=== PATIENT | female | born 1975 | race Caucasian/White ===

== ENCOUNTER 2019-03-07 00:21 | Emergency (ER) | payer OTHER ==
[~2019-03-07] VITALS: Ht 167.6 cm; Wt 70.3 kg
[2019-03-07 00:57] LABS: ABSOLUTE NEUTROPHILS 5.5 thou/uL (1.4-8.2); BASOPHILS 1.2 % (0.0-2.0); EOSINOPHILS 2.5 % (0.0-3.0); HEMATOCRIT 43.2 % (37.0-47.0); HEMOGLOBIN 14.7 gm/dL (12.0-15.0); LYMPHOCYTES 34.9 % (24.0-44.0); MCH 31.2 pg (26.0-34.0); MCHC 33.9 g/dL (28.0-37.0); MCV 92.2 fL (80.0-100.0); MONOCYTES 8.2 % (1.0-8.0); PLATELET COUNT 278 thou/uL (150-400); POLYS 53.2 % (36.0-66.0); RBC 4.69 mil/uL (4.20-5.00); WBC 10.4 thou/uL (4.0-11.0)
[2019-03-07 01:03] LABS: ANION GAP 10 mmol/L (7-16); BUN 15 mg/dL (7-18); CHLORIDE 102 mmol/L (98-107); CO2 28 mmol/L (21-32); CREATININE 0.8 mg/dL (0.6-1.0); GLUCOSE 110 mg/dL (74-106); POTASSIUM 3.8 mmol/L (3.5-5.1); SODIUM 140 mmol/L (136-145)
[2019-03-07 01:12] LABS: TROPONIN-I <0.06 ng/mL (<0.06)
[2019-03-07 02:20] VITALS: BP 125/71
--- NOTE | 2019-03-07 08:05 | EKG ---
[place] [address] [facility] [place] [address] ELECTROCARDIOGRAM REPORT Name: TONI LNENON Room #: [facility] Panfilo#: [id number] ������������������ Admission: 03/07/19 ������������������ Attend Phys: Discharge: 03/07/19 ������������������ Date of : 71 Report #: [id number] ����������������������������������������������������������������� [id number] THIS REPORT FOR: //name// [facility] ED Test Date: 2019-03-07 Test Time: 00:35:57 Pat Name: TONI LENNON Department: Room: Gender: F Plumber Assistant: TRACI : 1975 Requested By: Ravin Patterson Order Number: [id number] MD: Randal Mar Measurements Intervals [place] Rate: 72 P: 34 MN: 142 QRS: 17 QRSD: 93 T: 27 QT: 395 QTc: 433 Interpretive Statements Sinus rhythm Poor R wave progression No previous ECG available for comparison Electronically Signed On 03-07-2019 8:05:16 CDT by Randal Mar [email or web address] ��������������������������������������������� <ELECTRONICALLY SIGNED> ���������������������������������������� By: Randal Mar MD, [facility] ��������������������������������������������� 03/07/19 0805 0035 0035 Randal Mar MD, FACC /EPI
== END 2019-03-07 02:20 | disposition home or self-care (01) ==
LOC: ER 00:21
PROVIDERS: Emergency Medicine
DX: R07.89 Other chest pain (principal); F17.210 Nicotine dependence, cigarettes, uncomplicated; Z88.0 Allergy status to penicillin

== ENCOUNTER 2019-10-29 10:30 | Inpatient (IN) | payer OTHER ==
[~2019-10-29] VITALS: Ht 167.6 cm; Wt 76.7 kg
[2019-10-29 10:32] VITALS: BP 144/93
[2019-10-29 11:49] LABS: BE(vivo) 2.1 mmol/L (-2 to +3); HCO3 25.5 mmol/L (22.0-26.0); PCO2 VENOUS 35.9 mmHg (41.0-51.0); PO2 VENOUS 39.7 mmHg (35.0-45.0)
[2019-10-29 11:54] LABS: ABSOLUTE NEUTROPHILS 5.3 thou/uL (1.4-8.2); BASOPHILS 0.5 % (0.0-2.0); EOSINOPHILS 0.3 % (0.0-3.0); HEMATOCRIT 41.9 % (37.0-47.0); HEMOGLOBIN 13.9 gm/dL (12.0-15.0); LYMPHOCYTES 25.6 % (24.0-44.0); MCH 30.2 pg (26.0-34.0); MCHC 33.2 g/dL (28.0-37.0); MCV 90.9 fL (80.0-100.0); MONOCYTES 9.8 % (1.0-8.0); PLATELET COUNT 312 thou/uL (150-400); POLYS 63.8 % (36.0-66.0); RBC 4.62 mil/uL (4.20-5.00); RDW 14.1 % (10.5-14.5); WBC 8.4 thou/uL (4.0-11.0)
[2019-10-29 12:02] LABS: CREATININE 0.7 mg/dL (0.6-1.0)
[2019-10-29 12:04] LABS: POTASSIUM 2.9 mmol/L (3.5-5.1)
[2019-10-29 12:08] LABS: TOTAL BILIRUBIN 0.5 mg/dL (<0.1-1.0)
[2019-10-29 15:20] VITALS: BP 132/71
[2019-10-29 15:28] VITALS: BP 132/71
[2019-10-29 17:42] VITALS: BP 137/80
--- NOTE | 2019-10-29 19:31 | NUR ---
[age] YEAR OLD FEMALE ADMITTED TO [facility] ROOM 442 UNDER THE CARE OF DR. MORALES. PT HAS BEEN C/O BEING HOARSE, FEVER AND COUGH FOR ONE WEEK. PT ALERT AND ORIENTED TIMES FOUR VSS, PT C/O HEADACHE PRN MEDICATIONS GIVEN WITH GOOD RELEIF. IVF INFUSING PER ORDER. PT TOLERATES DINNER. PT UP AB ALIA WITH STEADY GAIT. PT AT BEDSIDE DURING ADMISSION ASSESSMENT. WILL CONTINUE TO MONITOR.
[2019-10-29 20:54] VITALS: BP 133/83
--- NOTE | 2019-10-30 03:38 | NUR ---
ASSESSMENT COMPLETED AT THE START OF SHIFT.PT DENIED PAINN SO FAR.PT WITH HOARSE VOICE,LUNGS DIM,EXPIRATORY WHEEZING NOTED.PT ON 2L/NC.PT CONT ON IVF,STEROIDS AND RT TX PER ORDER.UP ADLIB IN ROOM WITH A STEADY GAIT.PT REQUESTED FOR AND RECEIVED AMBIEN X1 FOR SLEEP.PT SLEEPING PEACEFUL ON HER BED WITH SPOUSE IN THE ROOM.CALL LIGHT WITHIN REACH.
[2019-10-30 06:34] LABS: HEMATOCRIT 37.9 % (37.0-47.0); HEMOGLOBIN 12.6 gm/dL (12.0-15.0); MCH 30.5 pg (26.0-34.0); MCHC 33.2 g/dL (28.0-37.0); RBC 4.11 mil/uL (4.20-5.00); RDW 13.9 % (10.5-14.5); WBC 4.6 thou/uL (4.0-11.0)
[2019-10-30 06:41] LABS: CALCIUM 8.2 mg/dL (8.5-10.1); CREATININE 0.6 mg/dL (0.6-1.0); POTASSIUM 3.8 mmol/L (3.5-5.1)
[2019-10-30 07:32] VITALS: BP 127/80
--- NOTE | 2019-10-30 10:42 | NUR ---
Assess due to high nutrition screening risk for poor intake and unintentional wt loss. Pt admitted with pneumonia. Has not been eating much of anything past week. Feels has lost wt due to this reason but could not confirm. Usual wts trend in 170s. Visit this am, pt eating breakfast and felt appetite slowly starting to recover. Voiced no specific needs. Low nutrition risk
--- NOTE | 2019-10-30 14:15 | NUR ---
PT ADMITTED RELATED TO PNUMONIA AND HYPOXIA. CM REVIEWED CHART AND SPOKE WITH CARE TEAM. CM MET WITH PT AND SIG OTHER AT BEDSIDE THIS DAY. PT IS A&O X4. CM ROLE INTRODUCED. PT INDICATED SHE LIVES IN A HOUSE WITH HER SIG OTHER, DTR, AND DOGS. 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 PT INDICATED SHE HAD 2 STEPS TO ENTER AND NO STEPS INSIDE. PT INDICATED SHE IS CURRENTLY PATIENT PAY BUT THAT SHE INTENDS TO GET INSURANCE THROUGH HER INSURER. CM TO FOLLOW INDICATED WITH DC PLANNING.
[2019-10-30 15:28] VITALS: BP 143/84
[2019-10-30 19:10] VITALS: BP 137/76
--- NOTE | 2019-10-30 20:05 | NUR ---
PT CARE ASSUMED AT 0700. A&Ox4. PT IS INDEPENDENT IN THE ROOM. ACHS ADDED FOR COVERAGED NEEDED ON IV STEROIDS. PT TOOK A SHOWER TODAY WITH HELP OF HER DAUGHTERS. PT HAD A NOSE BLEED THAT WAS DUE TO NO BUBBLER ON HER 02 AFTER ADDING THIS SHE FELT MORE COMFORTABLE AND HAS HAD NO MORE NOSE BLEEDS. PT WOULD LIKE TO HAVE SOMETHING TO HELP HER SLEEP TONIGHT. CALL LIGHT IN REACH. PT HAD A HEADACHE THAT WOULD NOT RESOLVE WITH TYLENOL. ORDERED A ONE TIME DOSE OF IV TRAMADOL AND THE HEADACHE RESOLVED. WILL CONTINUE TO MONITOR.
--- NOTE | 2019-10-30 23:37 | NUR ---
NURSE ASSUMED CARE OF PATIENT AFTER 2200. UPON ENTERING ROOM TO UPDATE PATIENT ON HER PREVIOUS REQUEST FOR MEDICATIONS TO HELP HER SLEEP AND HELP HER HEADACHE, NURSE FOUND HER CRYING. NURSE TALKED WITH HER AND UPDATED HER AND LISTENED TO HER. PATIENT UPSET ABOUT MEMORIES OF HER SIBLINGS WHO ARE NO LONGER LIVING. SHE THEN CALLED SOMEONE ON THE PHONE A BIT LATER TO KEEP HER COMPANY. SHE EXPRESSED SHE FEELS BETTER NOW. MEDICATIONS ORDERED AND GIVEN. NURSE TO CONTINUE TO MONITOR PATIENT STATUS.
[2019-10-31 08:22] VITALS: BP 139/90
[2019-10-31 16:21] VITALS: BP 156/90
--- NOTE | 2019-10-31 20:05 | NUR ---
PT CARE ASSUMED AT 0700. A&Ox4. PT WALKED THE HALLWAY TWICE TODAY BUT WAS OUT OF BREATH JOSE SECOND TIME AND HAD TO BE BROUGHT BACK TO THE ROOM WITH A WHEEL CHAIR. PT WAS RESTING IN THE ROOM MOST OF THE DAY. SHE HAS REQUESTED TO HAVE AMBIEN FOR OVER NIGHT AND WOULD LIKE AN ORDER PUT IN SINCE THIS IS A HOME MED THAT SHE HAS. ACHS ON BOARD WITH COVERAGE NEEDED DUE TO PREDNISONE ON BOARD. WEAN OXYGEN TOLERATED. IV WITH NO REDNESS OR EDEMA. IV FLUIDS INFUSING WITH IV ANTIBIOTICS ON BOARD. PT IS INDEPENDENT IN THE ROOM. CALL LIGHT IN REACH. WILL CONTINUE TO MONITOR.
[2019-10-31 21:17] VITALS: BP 141/89
--- NOTE | 2019-11-01 03:23 | NUR ---
ASSUMED PT CARE AT 1900. PT REPORTS NO PAIN. TOOK A SHOWER THIS EVENING. UP AD ALIA IN THE ROOM AND HALLWAYS. PM MEDS GIVEN. FLUIDS INFUSING PER ORDER. SLEPT MAJORITY OF SHIFT.
[2019-11-01 06:37] LABS: HEMATOCRIT 36.2 % (37.0-47.0); HEMOGLOBIN 11.7 gm/dL (12.0-15.0); MCHC 32.4 g/dL (28.0-37.0); MCV 92.4 fL (80.0-100.0); RBC 3.92 mil/uL (4.20-5.00); RDW 14.4 % (10.5-14.5); WBC 14.5 thou/uL (4.0-11.0)
[2019-11-01 06:48] LABS: CALCIUM 7.8 mg/dL (8.5-10.1); CREATININE 0.6 mg/dL (0.6-1.0); POTASSIUM 4.3 mmol/L (3.5-5.1)
[2019-11-01 07:24] VITALS: BP 139/85
[2019-11-01 16:45] VITALS: BP 144/85
[2019-11-01 19:24] VITALS: BP 144/82
--- NOTE | 2019-11-01 21:13 | NUR ---
PT CARE ASSUMED AT 0700. A&Ox4. PT UP INDEPENDENTLY IN THE ROOM AND FLOOR. PT LUNGS CLEAR. WEANED OFF OF O2 WITH SAT RANGE BTWEEN 92-96%. IV SALINE LOCKED WITH IV ANTIBIOTICS INFUSING. IV PATENT WITH NO REDNESS OR EDEMA. PT IS INTICIPATING TO DICHARGE TOMORROW. CALL LIGHT IN REACH. PT IS CONCERNED THAT SHE WILL BECOME A DIABETIC DUE TO MOTHER BEING A DIABETIC AND PT NEEDING INSULIN CURRENTLY DUE TO IV STEROIDS. AWARE AND WILL DISCUSS THIS FURTHER WITH PT.
--- NOTE | 2019-11-02 03:15 | NUR ---
Care assumed of patient at 1915: Patient up ad janis in hallways and bedroom. Patient alert and oriented x4. Calm, pleasant and cooperative. Maintain O2 at 92% on RA. Non-productive cough noted. Hoarse voice. Patient smiling, interactive with staff. Patient hopeful about discharging to home 11/02/19. Patient has saline lock to right AC. No redness, drainage or swelling observed. Patient had difficulty going to sleep this shift and requested PRN Benadryl. Medication administered and patient able to fall to sleep approximately 1 hour later. Respirations even and unlabored. Remains afebrile.
[2019-11-02 04:44] LABS: HEMATOCRIT 36.8 % (37.0-47.0); HEMOGLOBIN 11.8 gm/dL (12.0-15.0); MCH 29.7 pg (26.0-34.0); MCV 92.8 fL (80.0-100.0); RBC 3.96 mil/uL (4.20-5.00); RDW 14.2 % (10.5-14.5); WBC 14.1 thou/uL (4.0-11.0)
[2019-11-02 08:46] VITALS: BP 154/87
[2019-11-02] MEDS ORDERED: MUCINEX600 MG PO (10:52)
[2019-11-02] MEDS ORDERED: LEVAQUIN 750 M750 MG PO (10:53)
[2019-11-02] MEDS ORDERED: PREDNISONE 10 M10 M1 PO (10:54)
[2019-11-02] MEDS ORDERED: PROAIR HFA8.5 GM INH (10:55)
[2019-11-02] MEDS ORDERED: AMBIEN 5 MG TABL5 M1 PO (10:59)
[2019-11-02 11:10] VITALS: BP 154/87
--- NOTE | 2019-11-02 12:17 | NUR ---
PT CARE ASSUMED AT 0700. A&Ox4. PT INDEPENDENT IN ROOM. DISCHARGE ORDERS IN. SCRIPTS AND RELEASE TO RETURN BACK TO WORK GIVEN TO PT. DISCHARGE COMPLETE. CALL LIGHT IN REACH. PT LEFT WITH DAUGHTER.
== END 2019-11-02 14:04 | disposition home or self-care (01) | DRG 190 ==
LOC: ER 10:30 → EROBS 13:08 → 4S 13:08
PROVIDERS: Emergency Medicine; ADMIT Hospitalist
DX: J44.0 Chronic obstructive pulmonary disease with (acute) lower respiratory infection (principal); J18.9 Pneumonia, unspecified organism; Z88.0 Allergy status to penicillin; Z87.891 Personal history of nicotine dependence; Z79.899 Other long term (current) drug therapy
CPT/HCPCS: 10195

== ENCOUNTER 2020-06-04 06:35 | Emergency (ER) | payer OTHER ==
[~2020-06-04] VITALS: Ht 167.6 cm; Wt 75.3 kg
[~2020-06-04 06:35] MED LIST: AMBIEN 5 MG TABL5 M1 PO; LEVAQUIN 750 M750 MG PO; MUCINEX600 MG PO; PREDNISONE 10 M10 M1 PO; PROAIR HFA8.5 GM INH
[2020-06-04] MEDS ORDERED: SERTRALINE HCL50 MG PO (06:42)
[2020-06-04] MEDS ORDERED: PREDNISONE50 MG PO (07:16)
[2020-06-04] MEDS ORDERED: MUPIROCIN15 GM TOP (07:16)
[2020-06-04 08:10] VITALS: BP 109/71
== END 2020-06-04 08:10 | disposition home or self-care (01) ==
LOC: ER 06:35
DX: T78.49XA Other allergy, initial encounter (principal); F32.9 Major depressive disorder, single episode, unspecified; F17.210 Nicotine dependence, cigarettes, uncomplicated; Z79.899 Other long term (current) drug therapy; Z88.8 Allergy status to other drugs, medicaments and biological substances; Z88.0 Allergy status to penicillin; X58.XXXA Exposure to other specified factors, initial encounter

== ENCOUNTER 2020-06-09 09:47 | Emergency (ER) | payer OTHER ==
[~2020-06-09] VITALS: Ht 167.6 cm; Wt 77.1 kg
[~2020-06-09 09:47] MED LIST changes: +MUPIROCIN15 GM TOP; +PREDNISONE50 MG PO; +SERTRALINE HCL50 MG PO
[2020-06-09] MEDS ORDERED: NORCO 5-325 TA1 EAC2 PO (11:36)
[2020-06-09 12:18] VITALS: BP 115/62
== END 2020-06-09 12:20 | disposition home or self-care (01) ==
LOC: ER 09:47
DX: M25.562 Pain in left knee (principal); F17.210 Nicotine dependence, cigarettes, uncomplicated; Z79.899 Other long term (current) drug therapy; Z88.0 Allergy status to penicillin; X50.1XXA Overexertion from prolonged static or awkward postures, initial encounter; Y93.89 Activity, other specified; Y92.89 Other specified places as the place of occurrence of the external cause; Y99.8 Other external cause status

== ENCOUNTER 2020-08-06 14:12 | Emergency (ER) | payer OTHER ==
[~2020-08-06] VITALS: Ht 167.6 cm; Wt 68.0 kg
[~2020-08-06 14:12] MED LIST changes: +NORCO 5-325 TA1 EAC2 PO
[2020-08-06 15:19] LABS: ABSOLUTE NEUTROPHILS 7.1 thou/uL (1.4-8.2); BASOPHILS 0.8 % (0.0-2.0); EOSINOPHILS 2.7 % (0.0-3.0); HEMATOCRIT 45.2 % (37.0-47.0); HEMOGLOBIN 15.1 gm/dL (12.0-15.0); LYMPHOCYTES 28.7 % (24.0-44.0); MCH 30.3 pg (26.0-34.0); MCHC 33.3 g/dL (28.0-37.0); MONOCYTES 5.7 % (1.0-8.0); PLATELET COUNT 313 thou/uL (150-400); POLYS 62.1 % (36.0-66.0); RBC 4.96 mil/uL (4.20-5.00); WBC 11.4 thou/uL (4.0-11.0)
[2020-08-06 15:27] LABS: CALCIUM 8.9 mg/dL (8.5-10.1); CREATININE 0.9 mg/dL (0.6-1.0); POTASSIUM 3.3 mmol/L (3.5-5.1)
[2020-08-06 15:33] LABS: ALBUMIN 4.1 g/dL (3.4-5.0); TOTAL BILIRUBIN 0.3 mg/dL (0.2-1.0)
[2020-08-06 16:10] LABS: URINE BILIRUBIN NEGATIVE (Negative); URINE BLOOD NEGATIVE (Negative); URINE CLARITY SL CLOUDY; URINE COLOR YELLOW; URINE GLUCOSE-RANDOM* NEGATIVE (Negative); URINE KETONES NEGATIVE (Negative); URINE NITRITE-REFLEX NEGATIVE (Negative); URINE PROTEIN (DIPSTICK) NEGATIVE (Negative); URINE SPECIFIC GRAVITY >= 1.030 (1.005-1.035); URINE UROBILINOGEN 0.2 E.U./dl (0.2-1.0)
[2020-08-06 16:13] LABS: URINE LEUKOCYTES-REFLEX 1+ (Negative)
[2020-08-06 16:38] LABS: BACTERIA-REFLEX 1-9 Few /HPF (None Seen); CASTS None Seen /LPF (None Seen); CRYSTALS None Seen /LPF (None Seen); SQUAMOUS >10 Many /LPF (0-3); URINE RBC None Seen /HPF (0-2); URINE WBC-REFLEX 6-15 Few /HPF (0-5)
[2020-08-07 00:55] VITALS: BP 115/78
== END 2020-08-07 00:55 | disposition short-term general hospital (02) ==
LOC: ER 14:12
PROVIDERS: Emergency Medicine
DX: R45.851 Suicidal ideations (principal); F32.9 Major depressive disorder, single episode, unspecified; F17.210 Nicotine dependence, cigarettes, uncomplicated; Z20.828 Contact with and (suspected) exposure to other viral communicable diseases; Z79.899 Other long term (current) drug therapy; Z88.0 Allergy status to penicillin